=== PATIENT | male | born 1950 | race Caucasian/White ===

== ENCOUNTER 2023-08-27 01:37 | Inpatient (IN) | payer SELFPAY ==
[~2023-08-27] VITALS: Ht 185.4 cm; Wt 88.4 kg
[2023-08-27] VITALS (9 sets, daily range): BP systolic 121–187; BP diastolic 74–99; PULSE 91–118; TEMP 97.7–98.4
[~2023-08-27 01:37] MED LIST: ASPIRIN 81M81 MG/TA2 PO; CIPRO 500MG TA500 MG PO; COLACE 100100 MG/CAP PO; DIOVAN 160MG160 MG PO; DIOVAN 80MG80 MG PO; FLOMAX 0.40.4 MG/CAP PO; LIPITOR20 MG PO; LISINOPRIL PO; NORCO 325 MG-51 TAB PO; PREDNISONE20 MG PO; PRINIVIL20 MG PO; PRINZIDE 12.5 M1 TA1 PO; PYRIDIUM200 M1 PO; REVATIO20 MG PO; ZESTRIL 10MG10 MG PO
[2023-08-27] MEDS ORDERED: NS 1,000 ML IV ONE (02:00)
[2023-08-27 02:01] LABS: INR 1.1 (0.8-3.0); PROTHROMBIN TIME 11.4 SECONDS (9.7-12.8)
[2023-08-27 02:04] LABS: BASO # 0.1 K/mm3 (0.0-0.2); BASO % 0.5 % (0.0-2.0); EOS # 0.2 K/mm3 (0.0-0.7); GRAN % 73.4 % (42.2-75.2); HEMATOCRIT 46.9 % (42.0-52.0); HEMOGLOBIN 15.5 g/dl (13.5-18.0); LYMPH # 1.2 K/mm3 (1.2-3.4); LYMPH % 11.4 % (20.0-51.0); MEAN CELL VOLUME 87 fl (80.0-100.0); MEAN CORPUSCULAR HEMOGLOBIN 29 pg (27-31); MEAN CORPUSCULAR HGB CONC 33 g/dl (33.0-37.0); MEAN PLATELET VOLUME 10.2 fl (7.4-10.4); MONO # 1.3 K/mm3 (0.1-0.6); MONO % 12.1 % (1.7-9.3); PLATELET COUNT 286 K/mm3 (130-400); RED BLOOD COUNT 5.38 M/mm3 (4.20-5.60); REDCELL DISTRIBUTION WIDTH-CV 14.3 % (11.5-14.5)
[2023-08-27 02:29] LABS: ALANINE AMINOTRANSFERASE 15 U/L (0-55); ALBUMIN 3.5 g/dL (3.4-4.8); ALKALINE PHOSPHATASE 86 U/L (40-150); ANION GAP 13 mmol/L (7-16); AST,SGOT 12 U/L (5-34); BILIRUBIN,TOTAL 0.6 mg/dL (0.2-1.2); BLOOD UREA NITROGEN 15 mg/dL (8-26); CALCIUM 9.9 mg/dL (8.4-10.2); CHLORIDE 105 mEq/L (98-107); CREATININE, serum 0.85 mg/dL (0.72-1.25); GLUCOSE 125 mg/dL (70-99); POTASSIUM 3.8 mEq/L (3.5-4.5); SODIUM 140 mEq/L (136-145); TOTAL PROTEIN 7.3 g/dl (6.2-8.1)
[2023-08-27 02:36] LABS: TROPONIN-I < 0.010 ng/mL (0.00-0.033)
[2023-08-27] MEDS ORDERED: NS 1,000 ML IV SCH ×2 (04:15→14:30)
[2023-08-27] MEDS ORDERED: Acetaminophen 325 MG TAB PO PRN (04:15)
[2023-08-27] MEDS ORDERED: Ondansetron 4 MG/2 ML VIAL IV PRN (04:15)
[2023-08-27] MEDS ORDERED: Iohexol 300 - 100 ML VIAL IV ONE (05:27)
--- NOTE | 2023-08-27 06:13 | NUR ---
Pt. arrived to the floor. Pt. is is alert. Pt. is able to state name, mk, the current president and that he is in [facility]. Pt. does report the year as 1995. Pt. does follow directions to an extent. Pt. with lt. side arm weakness and trouble following directions with left sided movements. Pt. denies pain or other needs.
--- NOTE | 2023-08-27 06:50 | NUR ---
Pt. does not know what meds he takes and is unsure of allergies. Will report to day shift nurse Philly, to call pharmacy today.
--- NOTE | 2023-08-27 08:20 | NUR ---
patient alert but unable to know where he is or what has happened to patient. patient has left sided weakness/ deficit. patient is incontinent of bowel. Patient has difficulty with vision, is unable to see properly. Patient unaware of his body directictions. patient had to two incontinetent bowel movements. patient on room air. call light within reach. bed at lowest position. bed alarm on.
[2023-08-27] MEDS ORDERED: Sennosides/Docusate 8.6-50 MG TAB PO SCH (09:00)
[2023-08-27] MEDS ORDERED: Nicotine 14 MG DAILY PATCH TD SCH (09:00)
--- NOTE | 2023-08-27 11:47 | NUR ---
SW was informed by nurse that patient was confused and would not be able to complete intake questions. SW reviewed electronic chart and seen Ms. Arcelia Delaney was appointed as family, but there was no number listed to reach to attempt to find out if family member is DPOA/HC. SW will report to on coming SW to follow up with patient intake.
--- NOTE | 2023-08-27 15:26 | NUR ---
IVF increased to 100ml/hr per MD order.
--- NOTE | 2023-08-27 18:18 | NUR ---
Assumed care of patient 1t 1130. Bedside report received from FARIDEH Colin. Pt had CT scan completed early this afternoon. Pt alert and oriented to name, , location and month only. Pt unable to make eye contact when asked to. Also looks around room when staff walks in room and begins to speak, unable to trace where voice is coming from in the room. Difficult to re-direct at times. Conversation inappropriate at times. Able to follow commands for neuro checks but has difficulty following directions when transferring from bed to chair. Fall precautions in place. UA needed. Supplies set up in room. IVF infuse as ordered to [facility]- IV site without s/s IV related complications. Pt uses urinal with assistance. Unable to place urinal in correct position himself.
--- NOTE | 2023-08-27 19:00 | NUR ---
Bedside report given to FARIDEH Blake.
--- NOTE | 2023-08-27 19:10 | NUR ---
Zofran administered IVP for c/o nausea. Tylenol administered po for c/o headache.
[2023-08-27] MEDS ORDERED: traZODone 100 MG TAB PO SCH (21:00)
[2023-08-27] MEDS ORDERED: Pravastatin 20 MG TAB PO SCH (21:00)
[2023-08-27] MEDS ORDERED: OLANZapine 5 MG,Water For Injection,Sterile 1 ML IM PRN (22:15)
[2023-08-27] MEDS ORDERED: OLANZapine 10 MG,Water For Injection,Sterile 2 ML IM ONE (22:30)
[2023-08-27 23:10] LABS: PH 5.5 (5.0-8.5); URINE APPEARANCE CLEAR (CLEAR/HAZY); URINE BLOOD 2+ (NEGATIVE); URINE COLOR YELLOW (YELLOW); URINE GLUCOSE TRACE (NEGATIVE); URINE KETONE NEGATIVE (NEGATIVE); URINE NITRATE NEGATIVE (NEGATIVE); URINE PROTEIN(semi-quant) TRACE (NEGATIVE); URINE UROBILINOGEN 0.2 E.U/dL (0.2-1.0)
[2023-08-27 23:18] LABS: COLLECTION METHOD CLEAN CATCH
[2023-08-28] VITALS (10 sets, daily range): BP systolic 105–190; BP diastolic 69–110; PULSE 101–123; TEMP 97.4–99.2
[2023-08-28] MEDS ORDERED: NS 1,000 ML IV SCH (00:30)
[2023-08-28] MEDS ORDERED: cefTRIAXone 1 G in Water For Injection,Sterile 10 ML IV SCH (00:30)
[2023-08-28] MEDS ORDERED: OLANZapine 5 MG,Water For Injection,Sterile 1 ML IM ONE (01:15)
[2023-08-28] MEDS ORDERED: LORazepam 2 MG/ML 1 ML VIAL IV ONE ×3 (02:30→14:00)
--- NOTE | 2023-08-28 02:41 | NUR ---
PT ALERT AND ORIENTED. HAS SOME SPACIAL DEFICITS WHEN SPEAKING WITH HIM HE DOENSNT MAKE EYE CONTACT. ALL NIGHT TONIGHT PT HAS BEEN AGGITATED AND CLIMBIMG OUT OF BED. PROVIDER NOTIFIED ZYPREXA TANG DOW ADDED TO PATIENT MAR, SEE DOCUMENTATION. AFTER ADMINISTRATION MEDS WERE INEFFECTIVE. PT CONTINUNG TO GET OUT OF BED AND UNAWARE HE IS IN [place] [address] BY TRYING TO GET UP, HE IS UNABLE TO BEAR WEIGHT. FLUIDS ON HOLD PROVIDER AWARE. PT SEEN BY PROVIDER AROUND 0200, ORDERS GIVEN FOR ATIVAN TO HELP PT AGGITATION, SEE DOCUMETATION. CALL LIGHT WITHIN REACH, BED ALARM SET.
[2023-08-28] MEDS ORDERED: Ziprasidone 10 MG,Water For Injection,Sterile 0.5 ML IM ONE (03:30)
[2023-08-28 07:07] LABS: BASO % 0.2 % (0.0-2.0); EOS % 0.2 % (0.0-4.0); GRAN # 11.6 K/mm3 (1.4-6.5); GRAN % 84.3 % (42.2-75.2); LYMPH # 0.7 K/mm3 (1.2-3.4); LYMPH % 5.2 % (20.0-51.0); MEAN CELL VOLUME 85 fl (80.0-100.0); MEAN CORPUSCULAR HEMOGLOBIN 29 pg (27-31); MEAN CORPUSCULAR HGB CONC 34 g/dl (33.0-37.0); MEAN PLATELET VOLUME 10.4 fl (7.4-10.4); MONO # 1.3 K/mm3 (0.1-0.6); MONO % 9.7 % (1.7-9.3); PLATELET COUNT 228 K/mm3 (130-400)
[2023-08-28 07:20] LABS: HEMATOCRIT 39.8 % (42.0-52.0); HEMOGLOBIN 13.5 g/dl (13.5-18.0)
[2023-08-28 07:28] LABS: CALCIUM 9.1 mg/dL (8.4-10.2); CREATININE, serum 0.66 mg/dL (0.72-1.25); POTASSIUM 3.5 mEq/L (3.5-4.5)
--- NOTE | 2023-08-28 08:45 | NUR ---
shift report received from FARIDEH Arellano
[2023-08-28] MEDS ORDERED: Sennosides/Docusate 8.6-50 MG TAB PO SCH (09:00)
--- NOTE | 2023-08-28 09:00 | NUR ---
patient is very restles and thrashing about in bed, attempts to get out of bed at times, is disoriented and cannot reorient him,
--- NOTE | 2023-08-28 09:33 | NUR ---
physica therapy was in and worked with patient and attempted to stand him at bedside, Dr Bender now in to see patient
--- NOTE | 2023-08-28 10:20 | NUR ---
he remains thrashing about in bed, pulling at his penis, placed urinal and encouraged him to void, he does not void but has been incontinent, continues to thrash and attempt to get out of bed, medicated with zyprexa 5mg IM
--- NOTE | 2023-08-28 11:10 | NUR ---
Dr Hansen and care team in to see patient, he is quieter at this time and less moving about in bed
--- NOTE | 2023-08-28 11:55 | NUR ---
ativan 2mg slow IV given, to radiology per bed for CT of head
--- NOTE | 2023-08-28 12:09 | NUR ---
returned to room per bed from radiology, appears to be sleeping
--- NOTE | 2023-08-28 12:30 | NUR ---
continues to rest quietly in bed
--- NOTE | 2023-08-28 13:32 | NUR ---
painting worker met with patient at bedside, patient confused, slurred speech, reaching for items in the air and laying crosswise in bed. Patient listed as self pay and contact of Arcelia Delaney has no contact number listed. KAMRON informed by [employer] Supervisor that Arcelia called to inquire if patient is in this hospital. She provided her contact information as [phone]. KAMRON returned Arcelia's call and was informed that she is travelling back from [place], [place] today and will be at hospital around 4-5 pm. She verified that she is DPOA for healthcare and will provide documentation when she arrives. She shared that patient lives alone in [place], is normally independent and uses no DME. Patient sees Dr. Miller as his PCP and uses [facility]. Arcelia gave permission to this SW, witnessed by KAMRON Nunez, to look through patient's belongings to locate wallet with insurance cards. KAMRON looked through belongings with JUSTUS [place] present and found no wallet. KAMRON spoke with Ava in R1 who stated she would locate patient's information. Ava called this SW back and stated patient has Medicare A/B and Blue Cross supplement. She also stated that patient's last name is spelled wrong on chart and should be Woellhof. Ava getting this changed on chart. Discharge plan: TBD
[2023-08-28] MEDS ORDERED: dexAMETHasone 10 MG/ML VIAL IV ONE (13:45)
--- NOTE | 2023-08-28 13:55 | NUR ---
brother in to visit, given a report that the confusion started during the night and physicians aware and testss are being done
--- NOTE | 2023-08-28 14:10 | NUR ---
given ativan 2mg slow IV and scheduled decadron, to radiology per cart for MRI
--- NOTE | 2023-08-28 14:50 | NUR ---
returned from MRI per bed, resting but moving arms about
[2023-08-28] MEDS ORDERED: Gadoterate 20 ML VIAL IV ONE (14:58)
--- NOTE | 2023-08-28 15:36 | NUR ---
zyglo technician called stating patient's heart rate in the 120s, nurse in room checking vital signs, manual BP is 190/100, HR 120, O2 sat 91%, RR 22, JEWELS Govea notified of the above
[2023-08-28] MEDS ORDERED: hydrALAZINE 20 MG/ML 1 ML VIAL IV ONE (15:45)
--- NOTE | 2023-08-28 16:05 | NUR ---
medicated with apresoline 10mg slow IV
--- NOTE | 2023-08-28 16:10 | NUR ---
reported MEWS score 4 to Miranda RN, charge nurse
--- NOTE | 2023-08-28 16:53 | NUR ---
NORMA Yost here, Dr Hansen notified and in to see patient
[2023-08-28] MEDS ORDERED: hydrALAZINE 20 MG/ML 1 ML VIAL IV PRN (17:00)
[2023-08-28] MEDS ORDERED: Morphine 4 MG/ML VIAL IV PRN (17:15)
[2023-08-28] MEDS ORDERED: LORazepam 2 MG/ML 1 ML VIAL IV PRN (17:15)
[2023-08-28] MEDS ORDERED: Carboxymethylcellulose PF Ophth 0.4 ML DROPPERETTE OP PRN (17:15)
[2023-08-28] MEDS ORDERED: Scopolamine 1 MG Delivered 3-Day PATCH TD SCH (17:15)
[2023-08-28] MEDS ORDERED: Haloperidol Lactate 5 MG/ML VIAL IV PRN (17:15)
[2023-08-28] MEDS ORDERED: Morphine Oral Concentrate 20 MG/ML UD SL PRN (17:15)
[2023-08-28] MEDS ORDERED: Atropine 1% Ophth Soln 2 ML BOTTLE SL PRN (17:15)
[2023-08-28] MEDS ORDERED: Glycopyrrolate 0.2 MG/ML 1 ML VIAL IV PRN (17:15)
--- NOTE | 2023-08-28 18:59 | NUR ---
bedside shift report given to FARIDEH Ledesma
--- NOTE | 2023-08-28 21:17 | NUR ---
Shift assessment complete. Patient is now on comfort care. 1mg IV ativan given at time of assessment as patient was starting to pull on IV dressing. Currently on room air. Patient repositioned. Call light within reach. Bed is locked and in low position.
--- NOTE | 2023-08-29 04:12 | NUR ---
Patient becoming quite restless with little relief from ativan. Starting to pull at IV dressing on hand as well as genitals. Appears to be reaching out to a person not in the room and trying to speak with them. 1MG IV haldol given
[2023-08-29 05:15] VITALS: BP 147/80; PULSE 109; TEMP 98.5
--- NOTE | 2023-08-29 06:55 | NUR ---
in bed and moving around a bit but not thrashing about, bedside shift report received from FARIDEH Ledesma
--- NOTE | 2023-08-29 07:33 | NUR ---
more moving about in bed and reaching and taking off covers, medicated with ativan 1mg slow IV
[2023-08-29] MEDS ORDERED: dexAMETHasone 10 MG/ML VIAL IV SCH (09:00)
--- NOTE | 2023-08-29 10:30 | NUR ---
resting in bed with eyes closed with no moving about in bed at this time
--- NOTE | 2023-08-29 11:20 | NUR ---
Dr Hansen and care team in to see patietn and talk with DPOA, social work coordinator will make arrangements for hospice
[2023-08-29] MEDS ORDERED: TRANSDERM-0.5 MG/21 TD (11:49)
[2023-08-29] MEDS ORDERED: DULCOLAX S10 MG/SUPP RC (11:49)
[2023-08-29] MEDS ORDERED: SYSTANE 0.4%-0.1 SOL OU (11:49)
[2023-08-29] MEDS ORDERED: ROXANOL 20MG20 MG/ML SL (11:49)
[2023-08-29] MEDS ORDERED: ATIVAN 1MG T1 MG/TAB PO (11:49)
--- NOTE | 2023-09-25 12:30 | NUR ---
DOWNTIME NOTE: An Electronic Health Record (EHR) downtime event occurred during this patient's care. For legal medical record information generated during the downtime period, please reference the patient's legal medical record. Paper or scanned documentation has been incorporated into the legal medical record which is maintained in accordance with Health Information Management (HIM) and record retention policies.
== END 2023-08-29 15:00 | disposition home health service (06) | DRG 54 ==
LOC: COL.ER 01:37 → MEDICAL 04:06
PROVIDERS: Nurse Practitioner Family; Physician Assistant; ADMIT Internal Medicine
DX: C79.31 Secondary malignant neoplasm of brain (principal); G93.41 Metabolic encephalopathy; G93.6 Cerebral edema; I61.9 Nontraumatic intracerebral hemorrhage, unspecified; I10 Essential (primary) hypertension; Z66 Do not resuscitate; F17.210 Nicotine dependence, cigarettes, uncomplicated; Z51.5 Encounter for palliative care; D72.829 Elevated white blood cell count, unspecified; R29.703 NIHSS score 3; R91.8 Other nonspecific abnormal finding of lung field; J43.9 Emphysema, unspecified; Z88.1 Allergy status to other antibiotic agents; Z88.8 Allergy status to other drugs, medicaments and biological substances; Z85.118 Personal history of other malignant neoplasm of bronchus and lung; Z92.21 Personal history of antineoplastic chemotherapy
CPT/HCPCS: A9575; G0378; J0360; J0696; J1100; J1630; J1650; J2060; J2270; J2359; J2405; J3486; J7030; Q9967